=== PATIENT | female | born 1970 | race Caucasian/White ===

== ENCOUNTER → 2017-12-28 09:47 | Outpatient (CLI) | payer OTHER, SELFPAY ==
[2017-12-28 12:28] LABS: CRP 8.56 mg/L (0.0-3.0)
[2017-12-29 16:10] LABS: Endomysial Antibody IgA Negative (Negative)
[2017-12-30 12:06] LABS: Immunoglobulin A 239 mg/dL (87-352); t-Transglutaminase IgA <2 U/mL (0-3)
== END ==
PROVIDERS: Family Provider Family Medicine; PCP Family Medicine; Visit Provider Internal Medicine Gastroenterology
DX: R10.9 Unspecified abdominal pain (principal); R19.7 Diarrhea, unspecified
CPT/HCPCS: 36415; 82784; 83516; 86140; 86255

== ENCOUNTER → 2018-01-12 15:58 | Outpatient (CLI) | payer OTHER, SELFPAY ==
[2018-01-12 18:13] LABS: Follicle Stimulating Hormone 3.8 mIU/mL
== END ==
PROVIDERS: Visit Provider Obstetrics & Gynecology
DX: N95.1 Menopausal and female climacteric states (principal)
CPT/HCPCS: 36415; 83001

== ENCOUNTER 2018-02-27 08:29 | Outpatient (RCR) | payer OTHER, SELFPAY ==
--- NOTE | 2018-02-27 09:07 | BH.SGPN.GN ---
Behaviors/Verbalizations/Mental Status: [Client alert and orient x3. She was appropriately groomed and dressed casually. Poor eye contact throughout. Client motor activity appropriate, closed body language as client was hunched over and making self appear smaller. Speech was soft with limited input provided. Mood was depressed and anxious, affect constricted, flat. Thoughts linear and logical, no present hallucination or delusions. Therapist reviewed clients symptom tracker to assess for intensity of mental health symptoms and identify risk for suicide. No signs of suicidal ideation, plan, or intent to date.] Client Response/Progress/Benefit: [Client first day in the IOP program and still adjusting to the treatment environment. Client did well to remain attentive throughout and was a passive participant in the group discussion, AEB client maintaining consistent eye contact, willingness to share with the group, and nodding throughout. Client discussed feeling nervous about being in the group setting but hopeful that the program will aid in improving client current mental health symptoms. Client went on to share struggling with physical health concerns that have begun to impact her mental health as well as leave client feeling exhausted. She benefitted from opening up to the group and receiving positive feedback from fellow participants to help normalize client current struggles with isolation and sleep as a major coping mechanism. Client recommended continued IOP tx to prevent decompensation and work with client to improve insight into mental health symptoms.] Narrative Note: []
--- NOTE | 2018-02-27 10:20 | BH.SGPN.GN ---
Behaviors/Verbalizations/Mental Status: [] Pt eye contact fair, casually dressed, motor activity appropriate, speech normal rate and tone, mood anxious and depressed, constricted affect, thoughts linear and logical, no evidence of delusions or hallucinations. Client Response/Progress/Benefit: [] Pt passive participant, stayed quiet appeared to listen attentively to others. On pt's reflection sheet that was completed pt identified she needs goals to help herself function. Pt appeared to connect with others comments about fear, negative thinking, and setbacks being barriers to setting and following through with goals AEB pt nodding head. Pt identified it's important for her to remember to set small goals, to not give up, and remember the little successes. Pt seemed to benefit from learning about setting SMART goals and connecting with peers comments. Narrative Note: []
--- NOTE | 2018-02-27 11:25 | BH.SGPN.GN ---
Behaviors/Verbalizations/Mental Status: [] Pt eye contact fair, casually dressed, motor activity restless, speech normal rate and tone, mood anxious, congruent affect, thoughts linear and logical, no evidence of delusions or hallucinations. Client Response/Progress/Benefit: [] Client passive participant contributed to discussion if elicited by therapist. Client shared her goal is to clean her kitchen and organize it by next week. Client reported she will work on her kitchen for at least 1 hour after class each day. Client shared she will make in a [id number] plan on where she will focus for each day and will check off task on her to do list to help her measure if she is accomplishing the goal. Client reports she can use her friends and people in the IOP program to help support her. Client reported the reason she wants to focus on this goal is because it makes her feel better when things are organized and clean in her home. Client seemed to benefit from creating a step by step plan on how to accomplish her identified smart goal. Narrative Note: []
--- NOTE | 2018-02-28 09:12 | BH.SGPN.GN ---
Behaviors/Verbalizations/Mental Status: [Client alert and orient x3. Client maintained consistent, regular eye contact throughout - a times looking down or away. Motor activity appropriate. Appearance was disheveled - wearing oversized sweats; hair unwashed. Speech soft though within normal limits. Mood depressed, affect constricted. Thoughts linear and logical, no present hallucinations or delusions. Therapist reviewed clients symptom tracker to assess for intensity of mental health symptoms and identify risk for suicide. No signs of suicidal ideation, plan, or intent to date.] Client Response/Progress/Benefit: [Client responded positively to session and appeared more actively engaged in process group than previous date session. Client appeared engaged with the group as evidenced by indicating connecting with fellow participants sharing their current frustrations, and was able to laugh alongside other group members as they shared. Client indicated still feeling unsure as to what she should share during check-in, but discussed ongoing difficulties with managing symptoms of depression. Client indicated that upon leaving group on the previous day she felt emotionally exhausted and initially began to fall back into normal routine of isolating and sleeping. Newton further explained that instead of ding so client reminded herself of the goal she had set and instead worked on that. Client noted feeling glad that she had been able to follow through with this. Benefitted from reflecting upon areas of success with the group as well as encouraging feedback received as a result. Client recommended continued IOP treatment to maintain stability as client learns skills for better managing mental health sx.] Narrative Note: []
--- NOTE | 2018-02-28 10:30 | BH.SGPN.GN ---
Behaviors/Verbalizations/Mental Status: []Client alert and oriented, neatly dressed and groomed. Eye contact good. Motor activity appropriate. Speech within normal limits. Affect constricted, mood anxious, depressed. Thoughts linear, logical, no signs of hallucinations or delusions. Client Response/Progress/Benefit: []Client responded well to session, participating when prompted. Client appeared to connect with the topic stating, I need my resilience back I feel like I've lost it. Client was receptive to gentle challenging from peers who helped client recognize coming to IOP demonstrates resilience. Client shared life can be chaotic, leading to anxiety, but one has to hand picker the ball and keep going. Client reported that resilience something that can be developed and it is adapting or being flexible to change. Client helped peers identify the factors that contribute to building resilience such as supportive connections, confidence, and courage. Client reported finding supports who understand what she is going through has helped give client hope and motivation. Client appeared to benefit from increasing awareness of resilience and the factors that help build a resilient personality. Progress limited, clients second day of IOP, but appearing to increase self-awareness and gain positive support. Client to continue IOP to prevent decompensation and increase mood stability.
--- NOTE | 2018-02-28 11:30 | BH.SGPN.GN ---
Behaviors/Verbalizations/Mental Status: []Client alert and oriented, neatly dressed and groomed. Eye contact good. Motor activity appropriate. Speech within normal limits. Affect flat, mood dysthymic, anxious. Thoughts linear, logical, no signs of hallucinations or delusions. Client Response/Progress/Benefit: []Client responded well to session, receptive to positive feedback from peers. Client engaged in activity, demonstrating resilient traits as shown by her words of encouragement despite hardships. Client connected the stress ball to a resilient personality as it bounces back no matter how hard you squeeze it. Client identified personal resilience traits such as being hopeful good things will happen, her children, supportive connections, and setting small goals to help client maintain resilience despite hardships. Client appeared to benefit from using in the moment resilience traits and receiving positive support from peers. Client to continue IOP to prevent decompensation and reduce depressive symptoms.
--- NOTE | 2018-03-01 09:08 | BH.SGPN.GN ---
Behaviors/Verbalizations/Mental Status: []Client alert and oriented, neatly dressed and groomed. Eye contact fair. Motor activity relaxed. Speech within normal limits. Affect constricted, mood depressed, anxious, became tearful when talking about symptoms. Thoughts linear, logical, no signs of hallucinations or delusions. Reviewed clients symptom tracker, no signs of suicidal ideation, plan, or intent as of 03/01/18. Client Response/Progress/Benefit: []Client responded well to session, providing insight and receptive to peers support. Client shared she was feeling grumpy and did not want to come to IOP today, but told herself she had to come. Client was receptive to praise given by therapist for making it to group rather than isolating. Client shared she struggles with negative thinking and often shoulds on herself. Client reported, I feel guilty about feeling upset about my health because I should be grateful. With therapist gentle challenging and elicitation, client gained awareness that feeling upset or frustrated does not make a person ungrateful and that blaming and shoulding on oneself only increases depressive symptoms. Client received ideas and supportive comments from peers on ways to overcome isolation and break the depressive maintenance cycle. Client shared she plans to eat lunch with her aunt today as a positive that will keep client from isolating. Client appeared to benefit from support provided by group. Progress still limited at this time, but client appears to be gaining self-awareness and reports working on her small goals. Client to continue IOP to prevent decompensation and increase mood stability.
--- NOTE | 2018-03-01 10:15 | BH.SGPN.GN ---
Behaviors/Verbalizations/Mental Status: [Client receptive of session, alert and orient x3. She was a passive participant during discussion but actively listening throughout, able to provide input when elicited. Consistent eye contact throughout. Motor activity appropriate, muscles tensed. Appearance neat and grooming well kempt. Speech soft, within normal limits. Mood was anxious, depressed. Affect constricted, congruent with mood. Thoughts logical, ruminative in nature. No present hallucinations or delusions.] Client Response/Progress/Benefit: [Client receptive of session and was more engaged than in previous groups. She continues to appear anxious in the group setting; however, actively listened throughout the group discussion. Client appeared to connect with the conversation reviewing the impact our negative thoughts have on preventing progress in managing and improving mental health symptoms and benefitted from the review of the depression maintenance cycle. Client showing progress in her comfort level and willingness to share with the group. She discussed that feeling as though she will never get better often reinforces her cycle of depression. Client recommended continued IOP tx to improve use of healthy coping skills and prevent decompensation.] Narrative Note: []
--- NOTE | 2018-03-01 11:25 | BH.SGPN.GN ---
Behaviors/Verbalizations/Mental Status: [Client eye contact fair - tearful when processing thoughts, dress was disheveled - clothing ill fitting and hair appearing unwashed, motor activity lethargic, speech soft, normal rate, mood depressed, congruent affect, thoughts linear and logical, no evidence of delusions or hallucinations.] Client Response/Progress/Benefit: [Client again did well to respond to session. She was a passive participant in the discussion portion however remained an active listener throughout. She appeared to understand the cognitive restructuring technique introduced and provided input as the group worked to implement this in the example. Client indicated identifying with the various negative thoughts and resulting mental health consequences discussed by others in the group. She appeared to benefit from applying the treatment material to identify depression maintenance cycle and begin working on implementing reframing strategies to reduce depressive thinking patterns. Recommended continued IOP tx to prevent decompensation and promote ongoing progress in managing depressive symptoms.] Narrative Note: []
--- NOTE | 2018-03-02 08:54 | BH.MDN_ITS ---
Multi-Disciplinary Note - Note 45-min Individual Time Started:: 12:30 Date: 03/01/18 Purpose of session/treatment goals addressed:: Purpose of session was to assess current symptoms and stressors. Other topics included: identifying treatment goals and connecting thoughts, feelings and behaviors. Eye Contact:: Fair Motor Activity:: Restless - fidgety with hands and feet Appearance:: Disheveled Speech:: Appropriate Mood:: Anxious, Depressed Affect:: Constricted Thoughts:: Linear, Logical, No evidence of hallucinations/delusions noted Staff Interventions:: Therapist used open ended questions to elicit pt's current symptoms and stressors. Therapist elicited pt's thoughts about what goals she'd like to accomplish while in IOP. Therapist provided psychoeducation about connection between thoughts, feelings, and behaviors. Therapist provided support by using active listening and validating emotions. Therapist gave pt homework to complete simple thought record. Client Response:: Pt reported she is starting to get more comfortable in group. Pt shared she has been struggling for the past year with medical conditions, which she believes has contributed to increased depression and anxiety. 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 Pt reports the loss of job has increased her anxiety and worry about finances. Pt shared she has hx of gambling addiction, but hasn't gambled in over a year. Pt reported she noticed her depressive and anxious symptoms worsening the past month in which she isolated for 2 weeks and had thoughts of suicide. Pt denies current thoughts of suicide, plan or intention. Pt identifies for treatment goals she would like to focus on decreasing depression , learning healthy coping skills, reframing negative thoughts and wants to improve her communciation to help her improve relationships. Pt agreeable to keep a thought record over the next week. Risks/Concerns:: Pt continues to have passive thoughts of , but denies intention or plan. Pt reported she couldn't harm herself because she couldn't do that to her children. Progress Toward Goals/Plan:: Pt progress limited given it is pt's first week in IOP. Session was focused on building rapport, identifying treatment goals, and brief introduction into the connection between thoughts, feelings, and behavior. Pt to continue IOP level of care to decrease depression, decrease anxiety and prevent decompensation. Time Stopped:: 13:10
--- NOTE | 2018-03-02 09:04 | BH.SGPN.GN ---
Behaviors/Verbalizations/Mental Status: [] Pt eye contact fair, casually dressed, motor activity restless, speech normal rate and tone, mood anxious, congruent affect, thoughts linear and logical, no evidence of delusions or hallucinations. Reviewed client?s symptom tracker, no signs of suicidal ideation, plan, or intent as of today. Client Response/Progress/Benefit: [] Client reported yesterday after group she met up with her and in her aunt's grandson which was really positive good time. Client reports she is proud of herself for not napping. Client shared she is continuing to work on her goal of cleaning her kitchen however she became a bit overwhelmed yesterday when she got to her desk which is in her kitchen because there are so many papers and photos that she will have to organize. Client reported despite feeling overwhelmed she still was able to get some of the papers shredded and did not quit. Through guidance client able to recognize perhaps her desk be a whole another goal after she completes her goal of cleaning the kitchen. Progress noted with client continuing to focus on her daily goal of spending at least 1 hour cleaning her kitchen and despite not wanting to get out of bed this morning she was able to make it to group. Client to continue IOP level of care to decrease depression and anxiety, improve daily functioning and prevent decompensation. Narrative Note: []
--- NOTE | 2018-03-02 10:03 | BH.SGPN.GN ---
Behaviors/Verbalizations/Mental Status: []Client alert and oriented, dress appropriate, dress neat. Good eye contact, on phone at times. Motor activity appropriate. Speech within normal limits. Affect constricted, mood depressed, anxious. Thoughts linear, logical, no signs of hallucinations or delusions. Client Response/Progress/Benefit: []Client responded well to session, contributing positively to discussion. Client connected with the quote sharing, I have conversations in my head of what I want to say, but then I don't. Client stated assumptions, negative thinking, and emotions have hindered client from communicating her needs effectively. Client identified expressing emotions and communicating a plan for coping are benefits of communication for mental health and relationships. Client reports she uses the passive communication style which has negatively impacted client's mental health because she has a hard time saying no and communicating her needs. Client shared she would like to be more assertive especially with her boyfriend. Client appeared to benefit from gaining awareness of how her communication style impacts mental health and relationships. Progress noted as shown by client's increased awareness and engagement, but can continue to benefit from IOP to increase mood stability.
--- NOTE | 2018-03-02 11:10 | BH.SGPN.GN ---
Behaviors/Verbalizations/Mental Status: []Client alert and oriented, neatly dressed and groomed. Eye contact good. Motor activity appropriate. Speech within normal limits. Affect congruent, mood euthymic, anxious. Thoughts linear, logical, no signs of hallucinations or delusions. Client Response/Progress/Benefit: []Client responded well to session, active participant. Client participated in the communication activity and was able to use specific, assertive communication with peers despite reporting often using passive communication. Client shared the activity helped her be more assertive by asking clarifying questions and listening to what others are saying not what I think they are saying. Client shared she wants to work on being more assertive with her supports and focusing on her needs, without attacking the other person. Client helped the group identify strategies to improve communication such as managing emotions, focus on topic at a time, and challenging cognitive distortions. Client appeared to benefit from practicing assertive communication in the moment. Client seems to be progressing with increasing awareness of mental health symptoms. Client to continue IOP to prevent decompensation and reduce depressive symptoms.
--- NOTE | 2018-03-06 14:58 | BH.MTP ---
[facility] Plan - Patient Information Program Physician:: Dr. Sidhu Primary Therapist:: Lidia Mccormick [facility] - Psychiatric Diagnoses Psychiatric Diagnoses:: Major depressive disorder recurrent moderate. Anxiety unspecified. PTSD. History of gambling Diagnosis Code(s):: F 33.1 - Estimated LOS Estimated LOS (in weeks):: 6
--- NOTE | 2018-03-09 09:02 | BH.SGPN.GN ---
Behaviors/Verbalizations/Mental Status: [] Pt eye contact fair, casually dressed, hair appeared disheveled, motor activity restless, speech normal rate and tone, mood depressed and anxious, constricted affect, tearful, thoughts linear and intact, no evidence of delusions or hallucinations. Reviewed client?s symptom tracker, no signs of suicidal ideation, plan, or intent as of today. 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 Pt shared she went to the doctor and had her vitamin D raised as well as some other changes with medications. Pt shared she was somewhat hopeful that maybe the Vitamin D will help her feel better and explain why she hasn't been feeling well physically or mentally. Pt became tearful when talking about overall feeling down and sad throughout the past week, struggled with identifying positives. Pt eventually able to identify a positive time over the past week. Pt progress minimal AEB pt continuing to struggle with depression, negative thinking and difficulty applying skills. Pt to continue IOP level of care to decrease depression, improve daily functioning, and prevent decompensation. Narrative Note: []
--- NOTE | 2018-03-09 10:09 | BH.SGPN.GN ---
Behaviors/Verbalizations/Mental Status: [Client maintained fair eye contact, casually dressed - oversized clothing, motor activity WNL, speech normal rate and tone - soft, limited input, mood depressed and anxious, affect constricted - appearing hesitant to share with group, thoughts linear and logical, no evidence of delusions or hallucinations.] Client Response/Progress/Benefit: [client responded well to session. She was a mostly passive participant in the discussion reviewing potential obstacles to bridging the gap between their perceived current realities and desired realities. Despite limited input in discussion, client appeared to benefit from actively listening as she indicated connecting ~with fellow participants indicating that asking for help with their mental health has been an ongoing barrier to tx progress. Client displaying progress in her ability to engage in session following other participants sharing their own personal experience. She shared that for her reality currently feels like a person who is literally broken in half and desires being whole again. Client recommended continued IOP tx to prevent decompensation and promote ongoing progress in identifying and challenging distorted thinking patterns.] Narrative Note: []
--- NOTE | 2018-03-09 11:18 | BH.SGPN.GN ---
Behaviors/Verbalizations/Mental Status: [Client maintained fair eye contact, casually dressed, motor activity appropriate, speech normal rate and tone, mood dysthymic, anxious, constricted affect, thoughts linear and logical, no evidence of delusions or hallucinations.] Client Response/Progress/Benefit: [Client responded well to session, engaged throughout. She appeared increasingly able to connect with group compared to previous session. This was evidenced by client actively working with fellow group members to guide participants through the [place] obstacle course activity. She provided detailed directions and support to the blindfolded group members and assistance with brainstorming potential solutions to the internal barriers identified. Client benefitted from reviewing how the different types of solutions the group identified in the activity can also be applied when facing her own barriers. Client progress in her comfort level with the group and ability to begin opening up regarding her own personal barriers. Recommended continued IOP tx to prevent decompensation and promote ongoing progress in attaining tx goals.] Narrative Note: []
--- NOTE | 2018-03-10 09:03 | BH.SGPN.GN ---
Behaviors/Verbalizations/Mental Status: [] Pt eye contact fair, casually dressed, motor activity restless, speech normal rate and tone, mood anxious, congruent affect, thoughts linear and logical, no evidence of delusions or hallucinations. Reviewed client?s symptom tracker, no signs of suicidal ideation, plan, or intent as of today. Client Response/Progress/Benefit: []Pt shared she is doing much better compared to yesterday, reported yesterday I was in a bad place. 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 Pt shared yesterday after leaving IOP she followed through with her goal of going to visit her nephew, which did help improve her mood. Pt reported she also went out with a friend to dinner despite not wanting to go anywhere. Pt recognized surrounding herself with support yesterday really helped improve her mood. Pt showing progress with accepting help from others. Pt to continue IOP level of care to decrease depression and prevent decompensation.
--- NOTE | 2018-03-10 10:45 | BH.NA ---
Physical Data - Vital Signs Pulse Rate: 108 Respiratory Rate: 16 Blood Pressure: 134/80 - Height/Weight Height: 1.63 m Weight:: 87.543 kg Weight in Pounds: 193.0 lbs Current Medication Compliance - Medication Compliance Do you take your medication as prescribed?: Yes Do you need assistance with taking medication?: No Have you had side effects from medication?: No Nutritional History - Appetite Nutritional Instructions:: If client shows signs of a swallowing problem, weight change of 10 pounds or more in the last month, or is on a diabetic diet, the physician will review and request a dietitian consult, as appropriate. All unintentional weight loss will be referred to the physician for decision on need for dietitian consult. Describe your appetite:: Good Have you noticed a change in your eating habits lately?: No Additional nutritional information:: 1-2 caff drinks daily Functional Assessment - Sleep Pattern Describe any problems with sleeping: Client describes difficulty falling asleep associated with rumination and hot flashes. - Activities Motor Activity:: Functional Sensory/Communication Assess - Hearing Problems Do you have any hearing problems?: Adequate - Communication Problems Do you have difficulty understanding what people are saying?: No Do you have trouble putting your thoughts into words or expressing what you want to say?: No Do people ever have trouble understanding what you say?: No What is your primary language?: Ukrainian Learning Assessment - Learning Barriers Learning Barriers:: Ready to learn Medical Problems/History - Gastrointestinal Conditions Gastrointestinal: Other (See comments) - IBS - Pain Assessment Do you have acute or chronic pain?: No - Female Reproductive Do you think you may be ?: No Number of pregnancies:: 2 Number of children:: 2 Do you have any history of breast disease?: No Surgical History - Surgical History Have you had any surgeries? If so, list type and date:: Yes - hyster, mike Substance Abuse - Substance Abuse Please describe substance abuse in the last 30 days:: Past ETOH abuse, rare now. Past illicit substance use. Former tobacco user, quit 2017 after 30 pack years. Mental Status Summary - Mental Status Significant Findings/Observations on Appearance and Mood:: Sybil is an alert and oriented, cooperative 47-year-old female, who appears her stated age. She has appropriate grooming and hygiene, casually dressed. Normal activity. Good eye contact. Speech is clear and of regular rate and volume. Mild-moderate anhedonia. Full and appropriate affect. Logical associations and normal process. No symptoms of delusions. She denies HI or hallucinations. Denies SI, but endorses passive thoughts of . Suicide Assessment - Suicidal Ideation Are you currently or have you been suicidal in the past?: No Physician Notification: If Active suicidal thoughts/Will not contract for safety is checked, contact physician and document in the Physician Notification section below. Assault History/Potential - History of Assault Do you have a history of assaulting someone?: No Physician Notification: If yes, notify physician and document notification date and time below. Fall Risk Assessment - Age Age: Less than 60 - Mental Status Mental Status: Willing & able to ask for assistance when needed - Physical Status Physical Status: No problems - Impairments Impairments: None - Elimination Elimination: Continent AND independent - Gait or Balance Gait or Balance: Walks independently - Hx of Falls History of falls in the past 6 months: No known history - Medications/Substances Psychotropics:: Antidepressants Medications/substances used within the past 24 hours or ordered to administer: 1-2 of the medications/substances listed above - Total Score Total Points:: 1 Physician Notification - Physician Notification Physician Notified: Daniela Sidhu Method of Notification: Face to Face 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 Impressions: Psychiatric Issues: MDD, anxiety Impression: General Medical Conditions: GERD, IBS - Level of Care How do the client's current symptoms and functional deficits support need for this level of care?: Sybil describes increased mental health symptoms for the past 4 weeks that are interfering with her work, family, and social relationships. She decribes extreme irritability and mood dysregulation. Client identifies her current undiagnosed health issues (dizziness and hot flashes) and strain in her family as her main stressors. Her sleep has been adversely effected due to rumination and difficulty falling asleep. IOP will promote gains and prevent further decompensation.
--- NOTE | 2018-03-10 11:20 | BH.SGPN.GN ---
Behaviors/Verbalizations/Mental Status: []Client alert and oriented, neatly dressed and groomed. Eye contact good. Motor activity appropriate. Speech within normal limits. Affect full-smiling and joking, mood euthymic. Thoughts linear, logical, no signs of hallucinations or delusions. Client Response/Progress/Benefit: []Client responded well to session, participating in activity, providing good insight. Client identified stressors in her control such as health somewhat, managing emotions, relationships, and job. Client stated it is important for her to put energy into the stressors in her control and accept the stressors out of her control. Client encouraged peers and shared ideas during the activity. Client helped peers develop strategies for reducing stress including avoiding negative people, prioritizing time and stressors, radical acceptance, self-compassion, and challenging negative thoughts. Client appeared to benefit from gaining additional strategies to manage stress. Client seems to be progressing as shown by her report of increased self-awareness and increased positive thinking. Client to continue IOP to prevent decompensation and reduce depression.
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
--- NOTE | 2018-03-10 14:41 | BH.DR.ITP ---
Initial Treatment Plan - Patient Information Visit Information: ADMISSION DATE: EXPECTED LOS: 4-6 weeks Diagnoses:: Major depressive disorder recurrent moderate F 33.1 - Problems/Symptoms Problem #1:: Depression Symptom:: Sad mood, anhedonia, crying spells, biologic disruption of sleep and appetite Problem #2:: Anxiety Symptom:: Rumination
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
--- NOTE | 2018-03-14 09:05 | BH.SGPN.GN ---
Behaviors/Verbalizations/Mental Status: [Client alert and orient x3, maintained good eye contact, casually dressed - appropriate grooming and hygiene, motor activity WNL, speech normal rate and tone, mood euthymic, expressed feeling positive, affect congruent - full, thoughts linear and logical, no evidence of delusions or hallucinations. Therapist reviewed clients symptom tracker to assess for intensity of mental health symptoms and identify risk for suicide. No signs of suicidal ideation, plan, or intent to date.] Client Response/Progress/Benefit: [Client responded positively to session and was an active participant throughout. She did well to provide input and openly discussed thoughts, feelings, and current treatment progress. 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 Client discussed going into the interview feeling both hopeful and excited, but realistic as she was glad to have a potential job prospect but knew she did not have any previous experience in that area. She discussed discovering that she did not in fact get the position but was feeling okay about it as she had created a backup plan of an alternative job she would apply for. Client went on to discuss that following the interview she was feeling positive and reached out to her to see if he would like to get dinner however he was working late so client had been able to go out with her nephew instead. Client indicated going for a long bike ride with her on Tuesday and was able to see observable differences in her mood and energy levels at that time. She shared even being able to race him to the end of the [place] which is significant progress for client regarding being able to enjoy and remain present in daily activities. Client benefited from reflecting with the group upon small improvements in her overall mood and ability to manage symptoms of depression. Client recommended continued IOP treatment in order to prevent decompensation and improve consistency of application of skills for mental health management] Narrative Note: []
--- NOTE | 2018-03-14 11:25 | BH.SGPN.GN ---
Behaviors/Verbalizations/Mental Status: [] Pt eye contact good, casually dressed, motor activity appropriate, speech normal rate and tone, mood euthymic, congruent affect, thoughts linear and intact, no evidence of delusions or hallucinations. Client Response/Progress/Benefit: [] Pt responded well to session, taking notes and contributing. Group discussed the different categories of coping skills which included distraction, emotional release, grounding, self-love, and thought challenging.? Pt participated in creating a coping skills ?menu? from the five categories of coping skills. Pt's coping skill menu included: walking, looking at evidence against, reaching out to support, and journal. Appeared to benefit from increasing repertoire of healthy coping skills. Will continue IOP tx to prevent decompensation, improve healthy coping, decrease distortions, and challenge distortions.
--- NOTE | 2018-03-14 15:53 | BH.MDN ---
Multi-Disciplinary Note - Note 30-min Individual Time Started:: 12:20 Date: 03/14/18 Eye Contact:: Good Motor Activity:: Appropriate Appearance:: Casual Speech:: Appropriate Mood:: Euthymic Affect:: Congruent Thoughts:: Linear, Logical, No evidence of hallucinations/delusions noted Time Stopped:: 12:50
[2018-04-21 10:13] VITALS: BP 134/80; PULSE 108; RESP 16
== END 2018-03-14 23:59 ==
LOC: BHIOP 08:29
PROVIDERS: Family Provider Family Medicine; PCP Family Medicine; Visit Provider Psychiatry & Neurology Psychiatry
DX: F33.1 Major depressive disorder, recurrent, moderate (principal); F41.9 Anxiety disorder, unspecified; F43.10 Post-traumatic stress disorder, unspecified; K58.9 Irritable bowel syndrome, unspecified; E55.9 Vitamin D deficiency, unspecified; F12.20 Cannabis dependence, uncomplicated
CPT/HCPCS: H0035; 90832; 90837; 90853

== ENCOUNTER 2018-03-15 09:00 | Outpatient (RCR) | payer OTHER, SELFPAY ==
--- NOTE | 2018-03-14 10:25 | BH.SGPN.GN ---
Behaviors/Verbalizations/Mental Status: []Pt eye contact good, casually dressed, motor activity appropriate, speech normal rate and tone, mood euthymic, bright affect, thoughts linear and intact, no evidence of delusions or hallucinations. Client Response/Progress/Benefit: []Pt actively engaged as evidenced by pt contributing to discussion and listening attentively to peers. Pt reported when first started the program she would cope by isolating, sleeping, and pushing others away. Pt stated she can now see how her way of coping was exasperating her symptoms. Pt connected with others about various barriers to utilizing healthy coping skills. Pt shared it's really difficult to cope when have no energy and no motivation, but recognizes the importance of doing something different because getting out can improve mood. Pt seemed to benefit from reflecting on the progress she has made since first day in IOP, despite only being in program for short time. Narrative Note: []
--- NOTE | 2018-03-15 09:05 | BH.SGPN.GN ---
Behaviors/Verbalizations/Mental Status: []Client alert and oriented, neatly dressed and groomed. Eye contact good. Motor activity appropriate. Speech within normal limits. Affect full, mood euthymic. Thoughts linear, logical, no signs of hallucinations or delusions. Reviewed clients symptom tracker, no risk for suicidal ideation, plan, or intent as of 03/15/18. Client Response/Progress/Benefit: []Client responded well to session, receptive to feedback from peers. Client reports feeling rushed today as client felt late coming to group, but I made it with plenty of time. Client shared she has been working on her resume which is a positive, but also anxiety producing, and client is unsure if she is doing it correctly. Client stated she plans to have a friend look at it and give feedback which is reducing client's anxiety. Client reported practicing 5-4-3-2-1 and deep breathing last night to reduce anxiety and client shared it was helpful. Client appeared to benefit from reflecting on positive ways she is coping with anxiety. Client to continue IOP as she is progressing with implementing coping skills, but continues to struggle with emotional regulation and negative thinking at times.
--- NOTE | 2018-03-15 10:18 | BH.SGPN.GN ---
Behaviors/Verbalizations/Mental Status: [Client orient x3, maintained good eye contact, casually dressed - grooming and hygiene well cared for, motor activity appropriate, speech normal rate and tone, mood euthymic and positive, affect congruent - bright, thoughts linear and logical, no evidence of delusions or hallucinations.] Client Response/Progress/Benefit: [Client receptive of session and actively engaged throughout. She did well to contribute to the discussion regarding how our choices impact the ways in which we cope with negative life events and in turn the consequences this may have on one's mental health. Client discussed that avoiding or ignoring the pitfalls that we have only tends to cause him to pile up and make matters worse for ourselves. Client benefited from H in the activity portion as she did well to actively take on a leadership role in identify various strategies in which the group was able to problem solve the various struggles they encountered throughout. Client made progress in her ability to identify connections between lack of awareness of pitfalls in the activity and not having awareness of one's own personal pitfalls. Client recommended continued IOP treatment to continue to decrease symptoms of depression and anxiety as well as improve insight regarding mental health symptoms and means for coping with them in a healthy way.] Narrative Note: []
--- NOTE | 2018-03-15 11:19 | BH.SGPN.GN ---
Behaviors/Verbalizations/Mental Status: [Client alert and orient x3, maintained good eye contact, casually dressed -appropriate hygiene, motor activity WNL, speech normal rate and tone, mood euthymic - making jokes and smiling, reflective, affect full and bright, thoughts linear and logical, no evidence of delusions or hallucinations.] Client Response/Progress/Benefit: [Client responded well to session and remained engaged throughout. She actively provided input to the discussion reviewing identifying personal pitfalls and potential means of avoiding or managing these pitfalls in healthy ways. Client shared that current personal pitfalls impacting her mental health include; include guilt, high standards for herself/others, being overwhelmed, lack of awareness, over thinking, predicting the future, and lack of communication. She benefitted from working with fellow participants to brainstorm potential solutions to the various pitfalls identified. Client displayed progress in her willingness to see what areas of her personal pitfalls are in her control and identify potential solutions. She shared practicing coping skills, knowing my limits, clearly communicating expectations, creating a plan 'B', and striving for balance. Client recommended continued IOP tx to maintain stability and continue to improve client consistent application of treatment interventions learned.] Narrative Note: []
--- NOTE | 2018-03-16 09:03 | BH.SGPN.GN ---
Behaviors/Verbalizations/Mental Status: []Pt alert and oriented. Casually dressed and appropriately groomed. Mood anxious, affect congruent. Speech tone and rate WNL. Thoughts linear and logical. Motor activity appropriate. No evidence of delusions or hallucinations. Reviewed clients symptom tracker, no risk for suicidal ideation, plan, or intent as of 03/16/18. Client Response/Progress/Benefit: []Pt reported she is continuing to work on her resume. Pt shared she invited a friend over to help her finish the resume, but pt's computer wouldn't work so couldn't work on resume with friend. Pt reported she was able to get some tips and ideas from her friend, which helped her when pt worked on resume the next day. Pt reported she placed several positive statements and affirmations around her house as daily reminders of positives. Pt identified feeling hopeful, yet nervous about needing a job soon so she can have insurance. Narrative Note: []
--- NOTE | 2018-03-16 10:07 | BH.SGPN.GN ---
Behaviors/Verbalizations/Mental Status: []Client alert and oriented, neatly dressed and groomed. Eye contact good. Motor activity appropriate. Speech within normal limits. Affect full, mood euthymic. Thoughts linear, logical, no signs of hallucinations or delusions. Client Response/Progress/Benefit: []Client responded well to session, active participant in discussion and activity. Client connected with the quote sharing, if we doubt ourselves or tell ourselves we will fail then we wont even try. Client defined failure as not meeting expectations and disappointing others. Client stated fear of failure can keep a person from trying or acknowledging strengths. Client reported fear of failure can lead to increased depression and low self-esteem. 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 Client connected the activity to failures in life, sharing Im not confident in my decisions or skills so I dont take risks at times. Client appeared to benefit from increasing awareness of how fear of failure impacts mental health. Client to continue IOP to increase mood stability and promote gains.
--- NOTE | 2018-03-16 11:15 | BH.SGPN.GN ---
Behaviors/Verbalizations/Mental Status: []Client alert and oriented, neatly dressed and groomed. Eye contact good. Motor activity appropriate. Speech within normal limits. Affect congruent, mood euthymic. Thoughts linear, logical, no signs of hallucinations or delusions. Client Response/Progress/Benefit: []Client responded well to session, providing supportive statements and good insight to discussion. Client shared fear of failure has impacted client because it has led to low confidence and feeling uncomfortable with any kind of change. Client reported group today helped client realize she can benefit from challenging herself and viewing change as a positive. Client shared currently fear of failure has affected her job search process because client self-doubts and then feels overwhelmed. Client helped the group identify strategies to overcome fear of failure such as challenging distorted thoughts, setting small goals, focusing on past successes, and reaching out to supports. Client set a personal goal to reduce fear of failure by printing out her resume and having a positive support review it. Client appeared to benefit from gaining strategies to overcome fear of failure. Client seems to be progressing as shown by her improved affect and mood, but continues to struggle with anxiety and negative thinking.
--- NOTE | 2018-03-22 09:05 | BH.SGPN.GN ---
Behaviors/Verbalizations/Mental Status: []Pt alert and oriented. Casually dressed and appropriately groomed. Mood anxious, affect congruent. Speech tone and rate WNL. Thoughts linear and logical. Motor activity appropriate. No evidence of delusions or hallucinations. Reviewed clients symptom tracker, no risk for suicidal ideation, plan, or intent as of 03/22/18. Client Response/Progress/Benefit: []Pt reported she finished her resume and has two job interviews coming up. Pt shared she is unsure about the jobs because she doesn't like change, but knows she needs the money and insurance. Pt shared she was upset with something she was journaling about which led to her and pt's boyfriend having an argument. Pt reported argument wasn't really talked about, but both just moved on. Pt reported she spent time with her daughter, which pt shared was really enjoyable. Pt shared she has been using grounding tools, challenging negative thinking, and identifying positives each day as skills that have helped her cope. Pt showing progress with using skills more consistently and reporting decreased depression. Pt to continue IOP level of care to maintain gains, decrease anxiety, and prevent decompensation. Narrative Note: []
--- NOTE | 2018-03-22 10:21 | BH.SGPN.GN ---
Behaviors/Verbalizations/Mental Status: [[Client alert and orient x3. She maintained good eye contact, was casually dressed, appearing clean and well kempt, motor activity within normal limits, speech normal rate and tone, mood euthymic, affect congruent, thoughts linear and logical, no evidence of delusions or hallucinations.] Client Response/Progress/Benefit: [Client responded well to session was actively engaged in both activity and discussion portions. She indicated connecting with the group topic of crisis identification and management. Client discussed within her small group the various characteristics that may contribute to a crisis situation and identified that crisis often occurs when encountering something that is difficult or potentially harmful. Client indicated relating to group participants discussion on how small things can pile up and become a potential crisis situation. Client displayed progress in her ability to identify how crisis manifest for her and indicated that she often minimizes the extent of her symptoms and experiences secondary emotions such as sadness and anger. Client benefited from psychoeducation portion discussing how thoughts, feelings, and behaviors can contribute to potential crisis as well as how effective communication can prevent crisis escalation. Client recommended continued IOP treatment in order to increase insight regarding her own mental health symptoms and management as well as prevent decompensation.] Narrative Note: []
--- NOTE | 2018-03-22 11:24 | BH.SGPN.GN ---
Behaviors/Verbalizations/Mental Status: [Client alert and orient x3. She maintained good eye contact, casually dressed and appropriately groomed, motor activity within normal limits, speech normal rate and tone, mood euthymic, affect congruent, thoughts linear and logical, no evidence of delusions or hallucinations.] Client Response/Progress/Benefit: [Client responded well to session and actively engaged throughout. She was able to take an active role in the discussion covering warning signs and triggers for potential crisis. Client indicated that for her her #1 warning sign is not taking care of her hygiene or showering. Client indicated that when getting close to crisis point she often stops plating activities of daily living. Client appeared to benefit from working with the group and identifying strategies for preventing and managing crisis as well as creating her own individual crisis kit to remind her of the strategies identified. Client shared placing a flower in her kit to remind her to stop and smell the roses as well as the quote do not worry, be happy to remind her to challenge anxious thoughts. Client displaying progress in her ability apply treatment concepts and indicates decreased mental health symptoms. Client recommended continued IOP treatment in order to improve consistency of skill application and continue to work towards treatment goals as well as prevent decompensation.] Narrative Note: []
--- NOTE | 2018-03-23 09:05 | BH.SGPN.GN ---
Behaviors/Verbalizations/Mental Status: []Client alert and oriented, neatly dressed and groomed. Eye contact good. Motor activity appropriate. Speech within normal limits. Affect full, mood euthymic, anxious. Thoughts linear, logical, no signs of hallucinations or delusions. Reviewed clients symptom tracker, no risk for suicidal ideation, plan, or intent as of 03/23/18. Client Response/Progress/Benefit: []Client responded well to session, providing positive feedback to peers. Client reports feeling a little off today due to a headache and feeling indecisive. Client had a job interview yesterday and shared it went well, client got the job. Client stated she wanted time to think about it, so client advocated for herself and has a week to decide what will be best for client. Client shared a month ago she would have felt very anxious about this situation and may have even canceled her interview, which client recognizes as progress. Client reported she has been using her mindfulness strategies, positive supports, and self-talk to manage symptoms. Client shared plan to reduce anxiety today by making a pros and cons list for the job which will help client feel more confident when making a decision. Client appeared to benefit from connecting with peers and identifying healthy coping skills. Progress noted as shown by client's report of applying healthy coping skills daily. Client to continue IOP to prevent decompensation and increase mood stability.
--- NOTE | 2018-03-23 10:15 | BH.SGPN.GN ---
Behaviors/Verbalizations/Mental Status: [Client maintained good eye contact throughout, casually dressed with appropriate grooming and hygiene, motor activity within normal range, speech normal rate and tone, thoughts linear and logical, mood is euthymic, affect bright and congruent, no evidence of delusions or hallucinations.] Client Response/Progress/Benefit: [Client responded well to session and active participant throughout. She indicated connecting well with group topic of emotion regulation and was able to identify various factors that may be negatively impacting one's ability to manage emotions in healthy and sustainable ways. Client unaffiliated from acting with fellow participants experiences in difficulties communicating their emotions or needs as well as how frustration with communication not knowing how to explain things with her supports can impact ability to regulate emotions. She displayed progress in her ability to take on a leadership role during the activity portion in which clients were prompted to complete a task challenging then to regulate emotions while effectively communicating under stress. She did well to identify ways in which barriers presented during the activity such as unclear expectations may relate to how we communicate emotions and mental health needs supports. Client recommended continued IOP treatment in order to prevent decompensation, further work on improving insights regarding mental health warning signs and triggers, as well as consistent application of identified coping skills.] Narrative Note: []
--- NOTE | 2018-03-23 11:17 | BH.SGPN.GN ---
Behaviors/Verbalizations/Mental Status: [Client maintained good eye contact throughout, casually dressed, appropriate grooming/hygiene, motor activity was appropriate, speech normal rate and tone, mood euthymic, affect congruent with mood, thoughts linear and logical - content reflective, no evidence of delusions or hallucinations. ] Client Response/Progress/Benefit: [Client responded well to session, engage throughout and able to provide input and positive feedback to the discussion. Client worked with fellow participants to identify common characteristics pounding each of the 4 zones discussed when reviewing the emotional energy matrix. Client discussed identifying most closely with the blue zone or state of low energy and alertness. Client indicated that she knows when she is in this zone based on several warning signs including increased isolation, poor personal hygiene, avoidance, and general sadness. Client benefited from working with the group on identifying strategies for improving functioning in each zone as well as maintain baseline functioning. Client identified that when in the low energy zone it is helpful for her to care for her hygiene and practicing self-care. Client displaying progress in her ability to identify mental health warning signs and triggers and implement the skills learned in order to improve management of symptoms and prevent them escalating. Client recommended continued work on improving communication with supports as well as regularly challenging herself to identify and challenge negative thought patterns.] Narrative Note: []
--- NOTE | 2018-03-24 09:06 | BH.SGPN.GN ---
Behaviors/Verbalizations/Mental Status: []Pt alert and oriented. Casually dressed and appropriately groomed. Mood anxious, affect congruent. Speech tone and rate WNL. Thoughts linear and logical. Motor activity restless. No evidence of delusions or hallucinations. Reviewed clients symptom tracker, no risk for suicidal ideation, plan, or intent as of 03/24/18. Client Response/Progress/Benefit: []Pt reported she went to the pool with her nephew, which was self-care because being around her nephew is calming for her. Pt shared her head is still hurting her and had some dizziness today; frustrated because unsure what is causing the dizziness. Pt reported she was offered the [employer] job and has been given one week to make a decision. Pt shared she is still unsure if she wants the job because she doesn't like change and needs to figure out if the new pay will cover her bills. Pt shared she did complete her goals of practicing belly breathing, self-care, and planning by doing a pros and cons list of her job. Pt showing progress with decreased isolative behaviors, generalizing coping skills and increased positive thinking. Pt to continue IOP level of care to decrease anxious thoughts and prevent decompensation. Narrative Note: []
--- NOTE | 2018-03-24 10:23 | BH.SGPN.GN ---
Behaviors/Verbalizations/Mental Status: []Client alert and oriented, neatly dressed and groomed. Eye contact good. Motor activity appropriate. Speech within normal limits. Affect congruent, mood euthymic. Thoughts linear, logical, no signs of hallucinations or delusions. Client Response/Progress/Benefit: []Client responded well to session, providing good insight to discussion. Client connected with the quote sharing, you need boundaries, or you will feel too overwhelmed. Client stated setting boundaries is hard for her as she does not want to hurt others feelings. Client reported other barriers to setting boundaries such as not saying no, mind-reading, and avoiding confrontation. Client identified potential benefits of boundaries such increased confidence, improved self-worth, and reduced anxiety. Client helped the group discuss the different types of boundaries, porous, rigid, and flexible as well as the pros and cons to each. Client stated, oh Im definitely porous. Client shared being porous has negatively impacted client as she takes on too much at once then feels overwhelmed. Client appeared to benefit from learning how boundaries impact mental health and identifying her boundary type. Client seems to be progress as evidenced by her report of working on personal goals to reduce anxiety and depression, but can continue to benefit from coping skill consistency.
--- NOTE | 2018-03-24 10:54 | PCM.PN.BLA ---
Progress Note Patient is seen in follow-up for major depressive disorder F 33.1, anxiety unspecified, PTSD, vitamin D deficiency. History is been obtained per interview with patient, discussion with staff, review of chart. Case discussed with treatment team. Chief complaint depression and anxiety I do not feel as depressed-more anxious. Interim history Mood improved over the past 2 weeks. Mild depressive symptoms persist but of decreased intensity. Reports increased energy and feeling better since discontinued estrogen. Feels Wellbutrin is effective. Moderate ruminative anxiety regarding multiple issues including health issues. Overall has decreased physical complaints. Neurology recommended no further testing at this time and suggested that symptoms would likely resolve spontaneously. Ruminative anxiety regarding potential job options. 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 No suicidal or homicidal ideation. No symptoms consistent with psychosis. Sleeping from 9 PM until between 7 AM and 9 AM. Complained of occasional nausea. Denies vomiting or diarrhea. Appetite normal. Complained of intermittent headaches. Compliant with medication including Cymbalta 30 mg daily. Wellbutrin XL 150 mg daily. Denies history of seizure. Denies use of alcohol or illicit drugs. Mental status exam Alert and oriented . No acute distress. Ambulatory with normal gait and station. Appears stated age. Casually dressed and groomed. Appropriate hygiene. Cooperative with interview. Good eye contact. No psychomotor agitation or retardation. Mood depressed but improved.. Affect congruent. Speech is clear and with regular rate and rhythm. Language fluent. Thought process organized. Associations logical. Thought content significant for ruminative anxiety. No suicidal or homicidal ideation related or detected.. No symptoms consistent with psychosis noted or detected. Immediate recent and remote memory grossly intact. Attention and concentration are fair. Estimated intelligence and fund of knowledge average. Judgment and insight improving. Diagnosis Major depressive disorder recurrent moderate F 33.1 Anxiety unspecified PTSD History of gambling Vitamin D deficiency Plan Continue IOP as the structured setting is necessary to prevent decompensation. Risks benefits alternatives of medications discussed with patient. Patient acknowledges understanding. Continue Cymbalta 30 mg daily. Continue Wellbutrin XL 150 mg daily. Continue vitamin D supplement. Follow-up with primary care physician and with [facility] [address]. Patient acknowledges understanding and is in agreement with plan. Feels able to maintain safety. Agrees to seek help or emergency care feeling unsafe to self or others. 18 minutes of supportive psychotherapy provided.
--- NOTE | 2018-03-24 15:20 | BH.MDN ---
Multi-Disciplinary Note - Note 45-min Individual Time Started:: 13:00 Date: 03/24/18 Eye Contact:: Good Motor Activity:: Appropriate Appearance:: Casual Speech:: Appropriate Mood:: Euthymic, Anxious Affect:: Congruent Thoughts:: Linear, Logical, No evidence of hallucinations/delusions noted Time Stopped:: 13:40
--- NOTE | 2018-03-28 09:03 | BH.SGPN.GN ---
Behaviors/Verbalizations/Mental Status: [Client maintained clear eye contact, casually and comfortably dressed, motor activity within normal limits, speech normal rate and tone, mood euthymic expressed as optimistic, affect congruent with mood, thoughts linear and logical, no evidence of delusions or hallucinations. Therapist reviewed client?s symptom tracker to assess for intensity of mental health symptoms and identify risk for suicide. No signs of suicidal ideation, plan, or intent to date.] Client Response/Progress/Benefit: [Client receptive of session, engaged throughout and provided input to discussion. Indicated that her emotion for the day in optimistic as she has had several positive days since last in group. Noted spending time with her nephew which she had enjoyed, as well as going to her high school reunion which had gone better than expected. Client additionally shared deciding to take a new which she had originally been unsure of but is feeling better about now. Client reports some anxiety in the car yesterday but was able to apply calming skills and thought challenging to prevent escalating, this is progress for client in regulating emotions. CLient benefitted from the commendation and support provided as she reflected upon progress. Recommended continued IOP tx to continue progressing towards goals and maintain stability.] Narrative Note: []
--- NOTE | 2018-03-28 10:10 | BH.SGPN.GN ---
Behaviors/Verbalizations/Mental Status: []Client alert and oriented, neatly dressed and groomed. Eye contact good. Motor activity appropriate. Speech within normal limits. Affect full, mood euthymic. Thoughts linear, logical, no signs of hallucinations or delusions. Client Response/Progress/Benefit: []Client responded well to session, positive contributions. Client connected with the quote sharing, your problems dont go away just because you avoid them. Client discussed the components of problems with the group and identified barriers that keep people from solving problems such as catastrophizing, confrontation, and anxiety. Client helped the group identify the ABCDEs of problem solving, which included various techniques to increase problem solving skills. Client engaged in the experiential activity, providing new ideas and open to feedback from peers to solve the problem. Client appeared to benefit from gaining awareness of the components of problems and practicing in the moment problem solving strategies. Client progressing as shown by her report of improved mood and functioning, but can continue to benefit from IOP to promote coping skill consistency and mood stability.
--- NOTE | 2018-03-28 11:10 | BH.SGPN.GN ---
Behaviors/Verbalizations/Mental Status: []Client alert and oriented, neatly dressed and groomed. Eye contact good. Motor activity appropriate. Speech within normal limits. Affect congruent, mood euthymic. Thoughts linear, logical, no signs of hallucinations or delusions. Client Response/Progress/Benefit: []Client responded well to session, contributing positively to discussion. Client connected the activity to solving problems in real life sharing, sometimes going slow is better so you can re-evaluate and focus on step by step. Client reported the activity reminded client of the importance of balancing the use of internal and external support. Client identified starting a new job as a problem she is currently facing and feeling confident at her new job as the solution. Client identified barriers keeping client from this solution as negative thinking, anxiety, and catastrophizing. Client identified steps to help client achieve her goal such as writing out a pros and cons list, reaching out to friends who have started new jobs, get good sleep, and remind herself of past successes. Client appeared to benefit from identifying solutions to her barriers. Client to continue IOP to promote gains and increase use of healthy coping skills to manage anxiety.
--- NOTE | 2018-03-29 09:03 | BH.SGPN.GN ---
Behaviors/Verbalizations/Mental Status: []Client alert and oriented, neatly dressed and groomed. Eye contact good. Motor activity appropriate. Speech within normal limits. Affect bright, mood euthymic. Thoughts linear, logical, no signs of hallucinations or delusions. Reviewed clients symptom tracker, no risk for suicidal ideation, plan, or intent as of 03/29/18. Client Response/Progress/Benefit: []Client responded well to session, providing supportive statements to peers. Client reports feeling optimistic and excited today a client as client is getting ready to start a new job and make changes. Client shared she has been working on her personal goals and last night client contacted two friends who are also going through changes to help normalize client's emotions. Client reported it really helped me realize what I'm feeling is okay and normal. Client shared she also reached out to her nephew who is struggling and spent time with family last night. Client reported overall, she feels like she is coping well, but client continues to struggle with reinforcing boundaries and handling confrontation. Client shared her son is starting to demonstrate unhealthy coping patterns and client is worried he will stop going to work like he did in the past. Client stated she has a rule with her son that he must work if he lives with her and client shared I know I have to set the boundary, but I won't kick him out. Client reported this is causing some tension between client and her boyfriend. Client receptive to discussion of strategies to improve communication and boundaries. Client appeared to benefit from gaining strategies and connecting with peers. Client progressing as evidenced by her report of generalizing healthy coping skills, but continues to struggle with using assertive communication and reinforcing boundaries.
--- NOTE | 2018-03-29 10:15 | BH.SGPN.GN ---
Behaviors/Verbalizations/Mental Status: []Pt alert and oriented, eye contact good, casually dressed, speech and tone WNL, mood euthymic, bright affect, thoughts linear and intact, no evidence of delusions or hallucinations. Client Response/Progress/Benefit: Pt contributed positively to discussion, listened attentively to others, and worked cooperatively with others during the activity. Pt agreed with peers it's important to have social supports, but reported it can be challenging to use supports when feeling depressed and anxious. Pt shared when she was depressed she would isolate and push away her supports, which she recognizes now did not help her situation. When processing challenge activity pt recognized it's important to be specific, clear and direct to make sure supports understand what best helps her. Pt seemed to benefit from discussion about positive characteristics for supports. Pt to continue IOP level of care to maintain gains, stabilize moods, and prevent decompensation.
--- NOTE | 2018-03-29 11:25 | BH.SGPN.GN ---
Behaviors/Verbalizations/Mental Status: [] Pt eye contact good, casually dressed, motor activity appropriate, speech normal rate and tone, mood euthymic, congruent affect, thoughts linear and intact, no evidence of delusions or hallucinations. Client Response/Progress/Benefit: [] Client at present as evidenced by many contributions throughout discussion and attentive to others. Client reported she benefits most when her support gives her gentle reminders of what skills and strategies have helped her in the past. Client emphasized gentle reminders because can become defensive feels like being demanded to do something. Client reported she needs to work on increasing her personal relationships because recognizes she does not really have or utilize her personal relationships as supports. Client shared her goal is to communicate her needs to her current supports and reach out to new people to continue to build upon her social support network. Client seemed to benefit from increased awareness of the different types of support and identifying what type of support she would like to build upon. Client demonstrating progress as evidenced by reporting decreased depression and a focus on using her supports versus pushing them away. Client to continue IOP level of care to maintain gains and prevent decompensation. Narrative Note: []
--- NOTE | 2018-03-29 15:18 | BH.TPR ---
Treatment Plan Review Date of Admission:: 02/27/18 Date of Treatment Plan Review:: 03/29/18
--- NOTE | 2018-03-31 09:05 | BH.SGPN.GN ---
Behaviors/Verbalizations/Mental Status: []Client alert and oriented, neatly dressed and groomed. Eye contact good. Motor activity appropriate. Speech within normal limits. Affect congruent, mood euthymic, anxious. Thoughts linear, logical, no signs of hallucinations or delusions. Reviewed clients symptom tracker, no risk for suicidal ideation, plan, or intent as of 03/31/18. Client Response/Progress/Benefit: []Client responded well to session, reflecting on progress and providing supportive statements to peers. Client reports feeling wonderful today as client met with her aunt this morning for breakfast shared having lots to look forward to. Client reflected on her time in [facility] stating learning the tools to cope with her mental health has been helpful and client feels more optimistic because of it. Client reported accomplishing her personal goal for the week of talking with her boyfriend. Client stated she talked to him about tone of voice and ways client would like to be challenged gently. Client reported the conversation went well, but client recognizes she still has progress to make with managing frustration. Client stated she has been reflecting on progress, using mindfulness, and being more assertive which demonstrates progress. Client appeared to benefit from gaining support from peers and reflecting on her gains. Client to discharge from [facility] today as she has made significant progress towards treatment goals.
--- NOTE | 2018-03-31 10:10 | BH.SGPN.GN ---
Behaviors/Verbalizations/Mental Status: []Client alert and oriented, neatly dressed and groomed. Eye contact good. Motor activity appropriate. Speech within normal limits. Affect congruent, mood euthymic, anxious. Thoughts linear, logical, no signs of hallucinations or delusions. Client Response/Progress/Benefit: []Pt contributed positively to discussion and listened attentively to peers. Pt reported for current reality she is on a road that splits in two ways, unsure of which direction to go but both directions are positive situations. Pt compared her current reality today to when she first entered the program, recognizing how much progress she has made. Pt stated she is a little anxious about which path to choose, but is pleased to know either decision could lead to better things. Pt reported her desired reality is to have confidently chosen one of her paths and feel more in control and stable in her situation. Pt seemed to benefit from identifying one of her future goals. Pt demonstrating progress AEB pt reflecting on progress she has made with increased confidence, decreased depression and improved communication skills. Narrative Note: []
--- NOTE | 2018-03-31 11:10 | BH.SGPN.GN ---
Behaviors/Verbalizations/Mental Status: []Client alert and oriented, neatly dressed and groomed. Eye contact fair. Motor activity appropriate. Speech within normal limits. Affect congruent, mood euthymic. Thoughts linear, logical, no signs of hallucinations or delusions. Client Response/Progress/Benefit: []Pt active participant AEB many contributions to discussion, working cooperatively with peers during activity, and attentively listening to others. Pt identified her barriers to reaching her desired reality include: difficulty setting boundaries, money, poor communication, negative thinking, physical problems, and difficulty managing emotions. Pt reported the identified barriers are not as impactful and strong as when first started the program because now pt has learned skills to help her overcome many of her identified barriers. Pt contributed to brainstorming of various strategies and skills that can help overcome barriers identified by group. Pt identified her gaol is to continue to be aware of her triggers and warning signs so she is proactive in helping herself versus reactive. Progress noted with pt reported increased stability, increased use of healthy skills, and functioning at baseline. Pt is to discharge from IOP program today. Narrative Note: []
--- NOTE | 2018-03-31 12:31 | BH.AFTERPLAN ---
Aftercare Plan - Demographics Treatment End Date:: 03/31/18 Psychiatrist:: Daniela Sidhu Psychiatrist Office #:: [phone] [facility]/IOP Therapist:: Lidia Mccormick Therapist Phone #:: [phone] - Medications Home Medications: Home Medications Duloxetine Hcl [Cymbalta] 90 mg PO DAILY 03/03/18 Fluticasone 0.05% [Flonase Nasal [place]] 2 spray NASAL DAILY 03/03/18 Omeprazole 40 mg PO DAILY 03/03/18 Bupropion HCl [Wellbutrin Sr] 100 mg PO DAILY 03/10/18 - Plan Details Progress/Aftercare Plan Details:: You have demonstrated significant progress since starting the program! You have improved ability to recognize and challenge negative thought patterns. You are being more direct and clear with others, instead of keeping in what you want to say or how you feel. Setting more clear boundaries seems to increase your confidence and improve relationships. You are consistently applying the skills that you have learned which has helped decrease your depression and anxious symptoms. Strategies for Success:: 1. 5,4,3,2,1 grounding tool! 2. Continue to use healthy skills: praying, singing, breathing, etc. 3. Use your positive supports - communicate how you feel and what you need. 4. Keep using the visual aids to remind you of the positives. 5. Challenge negative thoughts and catch distorted thought patterns. 6. Remember to use your crisis kit when needed. 7. Setting small daily goals. 8. Remember to celebrate your small successes!!! 9. Refer back to binder to refresh skills and strategies. 10. Communicate, Communicate, Communicate!!!!! No one can read your mind. - Appointments Appointments/Referrals to Other Services:: 1. Dr. Barnes - scheduled for April 24 for psychiatry follow up. 2. Humberto Kennedy - to schedule for follow up counseling for next week.
--- NOTE | 2018-03-31 13:23 | BH.DS_ITS ---
Discharge Summary - Demographics Date of Admission:: 02/27/18 Discharge Date: 03/31/18 Presenting Problems at Admission:: Patient is a 47-year-old female who presented to the [facility] with complaint of depression and anxiety. She reported she has had multiple medical issues of uncertain etiology over the past year which she feels has contributed to her psychiatric symptoms. She reported increased depression since January which she associated with job stress, poor communication with her boyfriend, and a brief trial of estrogen for menopausal symptoms. She endorsed a depressed mood with feelings of sadness, crying, anhedonia, decreased energy and difficulty concentrating. She slept from 10 PM to 7 AM but admitted that she would lay in bed for 5-6 hours per day. Discharge Diagnoses:: Major depressive disorder recurrent moderate F 33.1. Anxiety unspecified. PTSD. History of gambling Reason for Discharge:: Pt has made significant progress on her treatment goals and no longer meets medical necessity for [facility] level of care. - Treatment Progress During Treatment & Response: Pt has made significant treatment progress with reduction in depression and anxiety. At admission to [facility] pt scored a 7 out of 8 for severity on depression on the DSM 5 cross-cutting measure. At discharge pt scored a 0 out of 8 on depression scale on DSM 5 cross- cutting measure. At admission to IOP pt scored a 8 out of 12 for severity on anxiety on the DSM 5 cross-cutting measure. At discharge pt scored a 0 out of 12 on anxiety scale on DSM 5 cross-cutting measure. Pt's discharge scores on DSM 5 cross-cutting measure indicate signficant reduction in her depression and anxiety symptoms. In addition to reducing depression and anxiety pt has made progress in other areas of her life as well with increased use of healthy skills and strategies. Pt reports improved communication skills by being more assertive. Pt recognizes keeping her thoughts and emotions in are not healthy for her. Pt has improved awareness of negative and distorted thought patterns, with ability to reframe or challenge unhealthy thoughts. Pt shared she uses her coping skills to manage her emotions. Pt responded well to treatment AEB engagement in both group and indvidual therapy. Pt often completed assigned homework and contributed thoughts and ideas to group discussion. Issues Still to be Addressed:: Pt reports she would like to continue to work on improving ability to regulate her emotions in the moment. Pt could also benefit from continued focus on identifying and reframing distorted and negative thought patterns. Pt could benefit from working on improving her self-esteem and confidence. Discharge Recommendations/Instructions:: Pt is scheduled with her psychiatrist Dr. Barnes on April 24. Pt reports she will schedule with her already established outpatient counselor Humberto Kennedy for next week. Discharge Handout: Complete Discharge Handout with client on aftercare options and continuity of care.
== END 2018-04-14 23:59 ==
LOC: BHIOP 09:00
PROVIDERS: Family Provider Family Medicine; PCP Family Medicine; Visit Provider Psychiatry & Neurology Psychiatry
DX: F33.1 Major depressive disorder, recurrent, moderate (principal); F41.9 Anxiety disorder, unspecified; F43.10 Post-traumatic stress disorder, unspecified; E55.9 Vitamin D deficiency, unspecified; F12.20 Cannabis dependence, uncomplicated
CPT/HCPCS: H0035; 90834; 90853

== ENCOUNTER → 2021-03-19 16:18 | Outpatient (CLI) | payer BC, SELFPAY ==
[2021-03-23 16:08] LABS: Almond <0.10 kU/L (Class 0); Apple <0.10 kU/L (Class 0); Banana <0.10 kU/L (Class 0); Beef <0.10 kU/L (Class 0); Carrot <0.10 kU/L (Class 0); Cashew <0.10 kU/L (Class 0); Chicken <0.10 kU/L (Class 0); Clam <0.10 kU/L (Class 0); Codfish <0.10 kU/L (Class 0); Corn <0.10 kU/L (Class 0); Egg, White <0.10 kU/L (Class 0); Garlic <0.10 kU/L (Class 0); Milk (Cow) <0.10 kU/L (Class 0); Oat <0.10 kU/L (Class 0); Pea <0.10 kU/L (Class 0); Peanut <0.10 kU/L (Class 0); Pecan <0.10 kU/L (Class 0); Pork <0.10 kU/L (Class 0); Potato, White <0.10 kU/L (Class 0); SCALLOP <0.10 kU/L (Class 0); SESAME SEED <0.10 kU/L (Class 0); Shrimp 0.32 kU/L (Class I); Soybean <0.10 kU/L (Class 0); Strawberry <0.10 kU/L (Class 0); Tomato <0.10 kU/L (Class 0); Walnut, (Food) <0.10 kU/L (Class 0); Wheat <0.10 kU/L (Class 0); Yeast 0.23 kU/L (Class 0/I)
[2021-03-23 16:27] LABS: Peanut <0.10 kU/L (Class 0); Wheat <0.10 kU/L (Class 0)
[2021-03-23 16:28] LABS: Turkey <0.10 kU/L (Class 0)
[2021-03-24 03:06] LABS: Alternaria tenuis <0.10 kU/L (Class 0); Ash, White <0.10 kU/L (Class 0); Aspergillus fumigatus <0.10 kU/L (Class 0); Bermuda Grass <0.10 kU/L (Class 0); Birch <0.10 kU/L (Class 0); Black Walnut <0.10 kU/L (Class 0); Cat Hair / Dander,Stand 0.55 kU/L (Class I); Cedar, Mountain <0.10 kU/L (Class 0); Cladosporium herbarum <0.10 kU/L (Class 0); Cockroach, American 0.42 kU/L (Class I); Cottonwood <0.10 kU/L (Class 0); D farinae Mite 0.94 kU/L (Class II); D pteronyssinus 0.81 kU/L (Class II); Dog Epithelia 0.85 kU/L (Class II); Elm, American White <0.10 kU/L (Class 0); Immunoglobulin E 122 IU/mL (6-495); Maple/Box Elder <0.10 kU/L (Class 0); Mulberry, White <0.10 kU/L (Class 0); Oak, White <0.10 kU/L (Class 0); Pecan 0.25 kU/L (Class 0/I); Penicillium Notatum <0.10 kU/L (Class 0); Pigweed, Rough <0.10 kU/L (Class 0); Ragweed, Short/Common 0.68 kU/L (Class II); Russian Thistle <0.10 kU/L (Class 0); Sheep Sorrel <0.10 kU/L (Class 0); Sycamore, American <0.10 kU/L (Class 0); Timothy Grass 0.44 kU/L (Class I)
[2021-03-24 09:57] LABS: Mouse Urine <0.10 kU/L (Class 0)
== END ==
PROVIDERS: PCP Family Medicine; Visit Provider Otolaryngology
DX: T78.40XA Allergy, unspecified, initial encounter (principal)
CPT/HCPCS: 36415; 82785; 86003